=== PATIENT | male | born 1960 | race Caucasian/White ===

== ENCOUNTER 2018-10-11 09:04 | Day surgery (SDC) | payer BC ==
[2018-10-11] VITALS (12 sets, daily range): BP systolic 111–124; BP diastolic 70–83; PULSE 65–76; RESP 13–27
[~2018-10-11 09:04] MED LIST: ALBU8.5H8 INH; BUDE6HFA INHALATION; MONT10TA21 PO; OMEP40CA6 PO
[2018-10-11] MEDS ORDERED: CEFAZOLIN 1 GM/50 ML (PMX) 50 ML IVPB ONE (09:30)
[2018-10-11] MEDS ORDERED: SOD CHLORIDE 0.9% 1,000 ML IV SCH (09:30)
[2018-10-11] MEDS ORDERED: FENTAnyl 50 MCG/ML VIAL ONE (10:39)
[2018-10-11] MEDS ORDERED: PROPOFOL 200 MG INJ ONE (10:39)
[2018-10-11] MEDS ORDERED: MIDAZOLAM 1 MG/ML 2 ML INJ ONE (11:16)
[2018-10-11] MEDS ORDERED: MEPERIDINE 25 MG INJ IV PRN (11:30)
[2018-10-11] MEDS ORDERED: OXYCODONE/ACETAMINOPHEN (5/325) TAB PO PRN ×2 (11:30)
[2018-10-11] MEDS ORDERED: DIPHENHYDRAMINE 50 MG INJ IV PRN (11:30)
[2018-10-11] MEDS ORDERED: hydrALAzine 20 MG INJ IV PRN (11:30)
[2018-10-11] MEDS ORDERED: LABETALOL HCL 20MG INJ IV PRN (11:30)
[2018-10-11] MEDS ORDERED: EPHEDrine 25 MG/5 ML SYG IV PRN (11:30)
[2018-10-11] MEDS ORDERED: CEFAZOLIN 1 GM INJ ONE (11:30)
[2018-10-11] MEDS ORDERED: FENTAnyl 50 MCG/ML VIAL IV PRN ×3 (11:30)
[2018-10-11] MEDS ORDERED: HYDROmorphONE 1 MG/5 ML IV SYRINGE IV PRN ×3 (11:30)
[2018-10-11] MEDS ORDERED: IPRATROPIUM (NEB) 0.5 MG/2.5 ML AMP HHN PRN (11:30)
[2018-10-11] MEDS ORDERED: PROPOFOL 20 ML ONE (11:30)
[2018-10-11] MEDS ORDERED: ONDANSETRON 4 MG INJ IV PRN (11:30)
[2018-10-11] MEDS ORDERED: LIDOCAINE 100 MG SYRINGE ONE (11:30)
[2018-10-11] MEDS ORDERED: ALBUTEROL 0.083% (NEB) 2.5 MG/3 ML AMP HHN PRN (11:30)
[2018-10-11] MEDS ORDERED: BUPIVACAINE 0.5% (MPF) 10 ML VIAL INJ ONE ×2 (12:14)
[2018-10-11] MEDS ORDERED: BACITRACIN/POLYMYXIN 28.35 GM OINT TOP ONE (12:42)
[2018-10-11] MEDS ORDERED: ACETAMINOPHEN 325 MG TAB ONE (13:43)
[2018-10-11] MEDS ORDERED: ACETAMINOPHEN 325 MG TAB PO ONE (14:00)
== END 2018-10-11 15:03 | disposition home or self-care (01) ==
LOC: SDS 09:04 → EEVIPCON 09:04 → SDS 15:03
PROVIDERS: ATTEND Surgery Surgical Oncology
DX: D23.4 Other benign neoplasm of skin of scalp and neck (principal); K21.9 Gastro-esophageal reflux disease without esophagitis; J45.909 Unspecified asthma, uncomplicated; R94.31 Abnormal electrocardiogram [ECG] [EKG]
CPT/HCPCS: 14020; 71045; 80053; 85025; 85610; 85730; 93005; J0690; J2001; J2250; J3010; 88304